=== PATIENT | female | born 1995 | race Caucasian/White ===

== ENCOUNTER 2020-12-12 00:19 | Emergency (ER) | payer SELFPAY ==
[2020-12-12 00:33] VITALS: BP 110/68; PULSE 76; TEMP 98.6; BMI 19.5
[2020-12-12] MEDS ORDERED: ONDANSETRON *ODT* 4 MG TABLET SL ONE (01:13)
[2020-12-12 01:16] LABS: EPI CELLS >36 /uL (0-25.1); HYALINE CASTS 7 /uL (0-3.1); URINE APPEARANCE TURBID; URINE BILIRUBIN 2+ (NEGATIVE); URINE COLOR RED; URINE GLUCOSE (UA) NEGATIVE (NEGATIVE); URINE KETONE Error (NEGATIVE); URINE LEUK ESTERASE 3+ (NEGATIVE); URINE NITRITE POSITIVE (NEGATIVE); URINE PROTEIN 2+ (NEGATIVE); URINE RBC 118 /uL (0-23.9); URINE UROBILINOGEN 0.2 mg/dL (0.2-1.0); URINE WBC 11 /uL (0-25.8)
[2020-12-12] MEDS ORDERED: ONDANSETRON *ODT* 4 MG TABLET ONE (01:25)
[2020-12-12] MEDS ORDERED: CEPHALEXIN MONOHYDRATE 500 MG CAPSULE (UD) PO ONE (01:30)
[2020-12-12 01:37] LABS: URINE BACTERIA 74.6 /uL (0-1359)
[2020-12-12] MEDS ORDERED: CEPHALEXIN MONOHYDRATE 500 MG CAPSULE (UD) ONE (01:38)
== END 2020-12-12 02:38 | disposition home or self-care (01) ==
LOC: JER 00:19
DX: N39.0 Urinary tract infection, site not specified (principal)
CPT/HCPCS: 81003; 84703; 87086; 99284-25; Q0162

== ENCOUNTER 2021-01-04 18:21 | Emergency (ER) | payer OTHER ==
[2021-01-04 18:48] VITALS: BP 101/60; PULSE 79; TEMP 98.5; BMI 22.8
[2021-01-04 20:09] LABS: URINE APPEARANCE CLEAR; URINE BILIRUBIN NEGATIVE (NEGATIVE); URINE COLOR YELLOW; URINE GLUCOSE (UA) NEGATIVE (NEGATIVE); URINE KETONE NEGATIVE (NEGATIVE); URINE LEUK ESTERASE NEGATIVE (NEGATIVE); URINE NITRITE NEGATIVE (NEGATIVE); URINE PROTEIN NEGATIVE (NEGATIVE); URINE UROBILINOGEN 0.2 mg/dL (0.2-1.0)
== END 2021-01-04 20:23 | disposition home or self-care (01) ==
LOC: JERFT 18:21
DX: Z32.01 Encounter for pregnancy test, result positive (principal)
CPT/HCPCS: 81003; 84703; 87086; 99283-25